=== PATIENT | female | born 1985 | race Two or more races ===

== ENCOUNTER 2023-06-25 18:53 | Emergency (ER) | payer OTHER ==
[~2023-06-25] VITALS: Ht 157.5 cm; Wt 59.0 kg
[2023-06-25 19:54] LABS: HEMATOCRIT 35.8 % (36.0-45.00); MEAN CELL VOLUME 85.9 fL (80.00-100.00); MEAN CORPUSCULAR HEMOGLOBIN 28.9 pg (27.00-32.0); MEAN CORPUSCULAR HGB CONC 33.6 g/dl (32.0-36.0); PLATELET COUNT 300 K/uL (150-450); RED BLOOD COUNT 4.17 M/uL (4.00-6.00); RED CELL DISTRIBUTION WIDTH 13.4 % (11.5-14.5)
== END 2023-06-25 20:39 | disposition home or self-care (01) ==
LOC: ER 18:54
PROVIDERS: General Practice
DX: B34.9 Viral infection, unspecified (principal); Z88.0 Allergy status to penicillin